=== PATIENT | female | born 1980 | race Caucasian/White ===

== ENCOUNTER 2016-10-16 03:42 | Emergency (ER) | payer OTHER ==
[~2016-10-16] VITALS: Ht 165.1 cm; Wt 82.2 kg
[~2016-10-16 03:42] MED LIST: ADDERALL XR 3030 MG PO; BACTRIM,SEPT1 TABLET PO; BENTYL10 MG PO; BENZONATATE100 MG PO; CARAFATE100 MG/ML PO; CEFDINIR300 MG PO; CEPHALEXIN500 MG; CLONIDINE HCL0.2 MG PO; DIFLUCAN150 MG PO; FLUTICASONE PRO16 GM BOTH NARES; HYDROCODON-ACE1 EAC7 PO; LASIX20 MG PO; MACROBID100 MG PO; NAPROSYN500 MG PO; NITROFURANTOIN100 MG PO; NOHOMEMEDS; PEPCID20 MG PO; SERTRALINE HCL50 MG PO; SUBOXONE 8 MG-1 EAC2 SL; TRAMADOL HCL50 MG PO; TRAZODONE HCL100 MG PO; TRAZODONE HCL50 MG PO; VENTOLIN HFA18 GM IH; ZITHROMAX Z-PA250 MG PO; ZOLOFT50 MG PO
[2016-10-16 04:02] LABS: ADD MIUA? YES; BILIRUBIN NEGATIVE; BLOOD NEGATIVE; COLOR AMBER ((YELLOW)); GLUCOSE (STRIP) NEGATIVE; KETONES NEGATIVE; LEUKOCYTES NEGATIVE; PROTEIN (STRIP) 30; SPECIFIC GRAVITY 1.025 (1.000-1.030)
[2016-10-16 04:04] LABS: HEMATOCRIT 38.5 % (36.0-46.0); MCH 31.9 PG (29.0-34.0); MCHC 34.3 G/DL (30.0-36.0); MEAN PLAT.VOLUME 10.8 uM^3 (9.5-12.4); PLATELET COUNT 232 K/uL (156-360); RBC DIS.WIDTH-CV 13.6 % (11.8-14.6); RBC DIS.WIDTH-SD 46.2 % (39-53); RED BLOOD COUNT 4.14 M/uL (3.80-5.20); WHITE BLOOD COUNT 9.4 K/uL (4.1-10.2)
[2016-10-16 04:11] LABS: BACTERIA NONE SEEN /HPF; EPITHELIAL CELLS 1+ /HPF; MUCUS TRACE /LPF; RED BLOOD CELLS 0-5 /HPF (0-5); UCUL ADDED? NO
[2016-10-16 04:12] LABS: CHLORIDE 106 mEq/L (99-109); POTASSIUM 3.7 mEq/L (3.7-5.4); SODIUM 138 mEq/L (136-147)
[2016-10-16 04:14] LABS: GLUCOSE 112 mg/dL (70-99)
[2016-10-16 04:15] LABS: ANION GAP 11 MEQ/L (2-14)
[2016-10-16 04:16] LABS: TOTAL BILIRUBIN 0.5 mg/dL (0.0-1.0)
[2016-10-16 04:17] LABS: ALKALINE PHOSPHATASE 70 IU/L (3-129)
[2016-10-16 04:18] LABS: GFR ESTIMATE (CALCULATED) > 59 mL/min/
[2016-10-16 04:19] LABS: UREA NITROGEN (BUN) 16 mg/dL (9-23)
[2016-10-16 04:28] LABS: QUANTITATIVE HCG < 4.0 MIU/ML
[2016-10-16] MEDS ORDERED: BACTRIM,SEPT1 TABLET PO (04:58)
[2016-10-16 05:13] VITALS: BP 138/84
== END 2016-10-16 05:14 | disposition home or self-care (01) ==
LOC: EME 03:42
DX: R30.0 Dysuria (principal); R35.0 Frequency of micturition; M54.5 Low back pain; J44.9 Chronic obstructive pulmonary disease, unspecified; J45.909 Unspecified asthma, uncomplicated; Z79.891 Long term (current) use of opiate analgesic; F17.200 Nicotine dependence, unspecified, uncomplicated
CPT/HCPCS: 80053; 81003; 84702; 85027; 87086; 99281; 99283

== ENCOUNTER 2017-01-24 21:15 | Emergency (ER) | payer OTHER ==
[~2017-01-24] VITALS: Ht 165.1 cm; Wt 85.9 kg
[2017-01-24] MEDS ORDERED: NORCO 5/3251 TABLET PO (21:53)
[2017-01-24] MEDS ORDERED: ZOFRAN ODT4 MG PO (21:53)
[2017-01-24 22:21] VITALS: BP 135/89
== END 2017-01-24 22:22 | disposition home or self-care (01) ==
LOC: EME 21:15
DX: J02.9 Acute pharyngitis, unspecified (principal); J44.9 Chronic obstructive pulmonary disease, unspecified; F17.200 Nicotine dependence, unspecified, uncomplicated
CPT/HCPCS: 99281; 99283